=== PATIENT | male | born 1975 | race Caucasian/White ===

== ENCOUNTER 2021-05-18 14:06 | Emergency (ER) | payer BC ==
[~2021-05-18] VITALS: Ht 182.9 cm; Wt 127.0 kg
[2021-05-18 14:26] VITALS: BP 135/72
--- NOTE | 2021-05-18 14:31 | NUR ---
PT BIBSELF C/O FLU S/SX ,FEVER/BODY ACHE X 2 WEEKS. PT AFEBRILE AT THIS TIME 98.7. SATTING 96% ON R/A. A/OX4.
--- NOTE | 2021-05-18 15:27 | NUR ---
COVID ANTIGEN SWAB DONE AND SENT
[2021-05-18] MEDS ORDERED: LEVO750T46 PO ×2 (17:04→17:26)
--- NOTE | 2021-05-18 17:29 | NUR ---
Patient does not wish to proceed with medical care recommended by Dmitry RONQUILLO. Patient given information related to possible complications, up to and including , which could occur as a result of leaving the hospital at this time. Patient verbalizes understanding of risks involved due to leaving against medical advice. Patient has signed AMA form.
--- NOTE | 2021-05-18 17:29 | NUR ---
Note sujata in EDM - 05/18/21 at 1729 by CONSUELO Patient does not wish to proceed with medical care recommended by ( ). Patient given information related to possible complications, up to and including , which could occur as a result of leaving the hospital at this time. Patient verbalizes understanding of risks involved due to leaving against medical advice. Patient has signed AMA form.
== END 2021-05-18 17:30 | disposition left against medical advice (07) ==
LOC: ER 14:13
DX: J18.9 Pneumonia, unspecified organism (principal); Z20.822 Contact with and (suspected) exposure to COVID-19; Z53.29 Procedure and treatment not carried out because of patient's decision for other reasons; E11.9 Type 2 diabetes mellitus without complications
CPT/HCPCS: 71045; 87426; 99284; C9803